=== PATIENT | female | born 1995 | race Caucasian/White ===

== ENCOUNTER → 2018-09-29 10:35 | Observation (INO) ==
[2018-09-29 05:08] LABS: Bilirubin,Urine Negative (Negative); Blood,Urine Negative (Negative); Color,Urine Yellow (Yellow); Glucose,Urine (UA) Normal (Normal); Ketones,Urine Negative (Negative); Leukocyte Esterase,Urine Trace (Negative); Nitrite,Urine Negative (Negative); Protein,Urine Negative (Neg-Trace); Specific Gravity,Urine < 1.005 (1.010-1.025); Urobilinogen,Urine Normal (Normal)
[2018-09-29 05:09] LABS: Clarity,Urine Clear (Clear)
[2018-09-29 05:16] LABS: Squamous Epithelial Cell,Urine Many per lpf (None-Few)
[2018-09-29 05:17] LABS: Bacteria,Urine Moderate per hpf (None-Few); Hyaline Casts,Urine None Seen per lpf (None-Few); RBC,Urine 0-3 per hpf (0-3); WBC,Urine 0-3 per hpf (0-3)
[2018-09-29 05:29] LABS: Amphetamine Screen,Urine Negative ng/mL (Cutoff=1000); Barbiturate Screen,Urine Negative ng/mL (Cutoff=200); Benzodiazepines Screen,Urine Negative ng/mL (Cutoff=200); Cannabinoid Screen,Urine Negative ng/mL (Cutoff = 50); Cocaine Screen,Urine Negative ng/mL (Cutoff= 300); Opiate Screen,Urine Negative ng/mL (Cutoff=300); Phencyclidine Screen,Urine Negative ng/mL (Cutoff=25)
--- NOTE | 2018-09-29 09:40 | Discharge Summary ---
Date of Encounter: 09/29/18 Time of Encounter: 09:40 - Discharge Diagnosis (1) 36 weeks gestation of Priority: Primary Status: Acute Comments: admitted for observation for labor evaluation (2) False labor Priority: Secondary Status: Acute Comments: No cervical change after 3 hours (3) NST (non-stress test) reactive on surveillance Priority: Secondary Status: Acute Comments: 135 bpm moderate variability +15x15 accels no decels noted. Cat. 1 tracing - Discharge Medications Home Medications: Potassium Effervescent [Klyte] 50 meq PO BID 3 Days #6 tablet.eff 08/20/18 [Rx] Pnv95/Ferrous Fumarate/FA [ Vitamin Tablet] 1 each PO 09/29/18 [History] Allergies/Adverse Reactions: Allergy/AdvReac Type Severity Reaction Status Date / Time No Known Allergies Allergy Verified 03/25/16 12:21 Data Procedures and tests throughout hospitalization: Laboratory Tests 09/29/18 09/29/18 04:43 04:43 Urine Color Yellow Urine Clarity Clear Urine pH 7.0 Ur Specific [place] < 1.005 L Urine Protein Negative Urine Glucose (UA) Normal Urine Ketones Negative Urine Blood Negative Urine Nitrite Negative Urine Bilirubin Negative Urine Urobilinogen Normal Ur Leukocyte Esterase Trace H Urine Microscopic RBC 0-3 Urine Microscopic WBC 0-3 Ur Squamous Epith Cells Many H Urine Bacteria Moderate H Hyaline Casts None Seen Ur Culture Indicated? NO. A Urine Opiates Screen Negative Ur Barbiturates Screen Negative Ur Phencyclidine Scrn Negative Ur Amphetamines Screen Negative U Benzodiazepines Scrn Negative Urine Cocaine Screen Negative U Marijuana (THC) Screen Negative Ur Drug Screen Interp See Below Labs on day of discharge: Labs from last 24 hours 09/29/18 09/29/18 04:43 04:43 Urine Color Yellow Urine Clarity Clear Urine pH 7.0 Ur Specific [place] < 1.005 L Urine Protein Negative Urine Glucose (UA) Normal Urine Ketones Negative Urine Blood Negative Urine Nitrite Negative Urine Bilirubin Negative Urine Urobilinogen Normal Ur Leukocyte Esterase Trace H Urine Microscopic RBC 0-3 Urine Microscopic WBC 0-3 Ur Squamous Epith Cells Many H Urine Bacteria Moderate H Hyaline Casts None Seen Ur Culture Indicated? NO. A Urine Opiates Screen Negative Ur Barbiturates Screen Negative Ur Phencyclidine Scrn Negative Ur Amphetamines Screen Negative U Benzodiazepines Scrn Negative Urine Cocaine Screen Negative U Marijuana (THC) Screen Negative Ur Drug Screen Interp See Below Date of admission: 09/29/18 04:28 Primary care physician: PCP NONE Discharging clinician: Bianca Camarillo Anticipated date of discharge: 09/29/18 - Patient Status Disposition: Home, Self-Care Condition: Good Functional capacity at discharge: independent ambulation - Discharge Instructions Follow Up With: NONE,PCP [Primary Care Provider] - Laya Sanchez DO [Partnered Physician] - - Diet and Activity Activity: increase activity as tolerated Diet: regular diet Hospital Course PHARMACEUTICAL PHYSICIAN Hospital course: Patient is a 23 y/o at 36w2d presented to labor and delivery with c/o contractions that have gotten stronger and closer together. Patient denies LOF or VB. Patient reports good movement. FHR 135 bpm moderate variability +15x15 accels no decels noted. Irregular contraction. Patient declines another SVE prior to discharge. Time Attestation: Total time spent providing and/or coordinating discharge services: Time Spent: Less than 30 minutes Exam - Constitutional General appearance IM: A&O X 3, pleasant, answers questions appropriately - Respiratory Respiratory exam: Present: CTAB - Cardiovascular Cardiovascular exam IM: Present: RRR, +S1, +S2 - GI/Abdominal GI/Abdominal exam IM: normal bowel sounds - Extremities Exam Extremities exam IM: Present: full ROM, normal capillary refill, normal inspection - Neurological Exam Neurological exam: alert, oriented X3, reflexes normal - Other Additional findings: SVE per RN /+1 no change. Patient declines another SVE prior to discharge. Patient is scheduled in office tomorrow. - VTE Reasons for not Prescribing Prophylaxis: Treatment not Indicated - Low risk for VTE
== END | disposition home or self-care (01) ==
LOC: 1NENULAB
PROVIDERS: ADMIT Advanced Practice Midwife; ATTEND Advanced Practice Midwife

== ENCOUNTER 2020-05-30 11:27 | Observation (INO) | END 2020-05-30 13:08 | disposition home or self-care (01) | LOC: 1NENULAB | PROVIDERS: ADMIT Obstetrics & Gynecology; ATTEND Obstetrics & Gynecology ==

== ENCOUNTER 2020-08-14 15:13 | Inpatient (IN) ==
[2020-08-14 15:06] LABS: Bacteria,Urine Few per hpf (None-Few); Bilirubin,Urine Negative (Negative); Blood,Urine Negative (Negative); Clarity,Urine Turbid (Clear); Color,Urine Light-Yellow (Yellow); Glucose,Urine (UA) Normal (Normal); Ketones,Urine Negative (Negative); Leukocyte Esterase,Urine Large (Negative); Mucus,Urine Few per lpf (None-Few); Nitrite,Urine Negative (Negative); Protein,Urine Negative (Neg-Trace); RBC,Urine 0-3 per hpf (0-3); Squamous Epithelial Cell,Urine Moderate per hpf (None-Few); Urobilinogen,Urine Normal (Normal); WBC,Urine TNTC per hpf (0-3)
[2020-08-14] MEDS ORDERED: Naloxone 0.4 MG/ML INJ IVP PRN (15:22)
[2020-08-14] MEDS ORDERED: Metoclopramide 10 MG/2 ML VIAL IVP PRN (15:22)
[2020-08-14] MEDS ORDERED: Famotidine 20 MG/2 ML VIAL IVP PRN (15:22)
[2020-08-14] MEDS ORDERED: Penicillin G Potassium 5,000,000 UNIT in 0.9 % Sodium Chloride Mini Bag 100 ML IVPB ONE (15:22)
[2020-08-14] MEDS ORDERED: Ondansetron 4 MG/2 ML VIAL IVP PRN (15:22)
[2020-08-14] MEDS ORDERED: *HR* FentaNYL (PF) 100 MCG/2 ML VIAL IVP PRN (15:22)
[2020-08-14] MEDS ORDERED: Betamethasone Acet/SodPhos 30 MG/5 ML VIAL IM SCH (15:30)
[2020-08-14] MEDS ORDERED: D5% in Lactated Ringers 1,000 ML IVC SCH (15:30)
[2020-08-14] MEDS ORDERED: Ringers Solution, Lactated 1,000 ML ONE ×2 (15:40→17:00)
[2020-08-14 15:53] LABS: Basophils % 0.3 %; Eosinophils # 0.1 K/mcL (0.0-0.6); Eosinophils % 1.1 %; Hematocrit 35.8 % (35.3-44.9); Hemoglobin 11.2 g/dL (11.5-15.4); Immature Granulocytes % 1.5 % (0-4); Lymphocytes # 1.9 K/mcL (0.6-4.6); Lymphocytes % 14.5 %; Mean Corpuscular HGB Conc 31.3 g/dL (31.6-35.5); Mean Corpuscular Hemoglobin 28.5 pg (28.0-33.3); Mean Corpuscular Volume 91.1 fL (83.0-100.0); Monocytes # 1.1 K/mcL (0.0-1.3); Monocytes % 8.3 %; Neutrophils # 9.6 K/mcL (1.6-8.9); Platelet Count 240 K/mcL (140-400); Red Blood Count 3.93 M/mcL (3.82-4.97); Red Cell Distribution Width 13.8 % (11.5-14.5); Segmented Neutrophils % 74.3 %; White Blood Count 12.9 K/mcL (4.3-11.1)
[2020-08-14 15:59] LABS: Amphetamine Screen,Urine Negative ng/mL (Cutoff=1000); Barbiturate Screen,Urine Negative ng/mL (Cutoff=200); Benzodiazepines Screen,Urine Negative ng/mL (Cutoff=200); Cannabinoid Screen,Urine Negative ng/mL (Cutoff = 50); Cocaine Screen,Urine Negative ng/mL (Cutoff= 300); Opiate Screen,Urine Negative ng/mL (Cutoff=300); Phencyclidine Screen,Urine Negative ng/mL (Cutoff=25)
[2020-08-14] MEDS ORDERED: Bupivacaine-MPF 0.25% 10 ML VIAL EP ONE (17:08)
[2020-08-14] MEDS ORDERED: EPHEDrine 50 MG/ML VIAL IVP PRN (17:08)
[2020-08-14] MEDS ORDERED: *HR* FentaNYL (PF) 100 MCG/2 ML VIAL EP ONE (17:08)
[2020-08-14] MEDS ORDERED: *HR* FentaNYL (PF) 100 MCG/2 ML VIAL ONE (17:12)
[2020-08-14] MEDS ORDERED: Bupivacaine-MPF 0.25% 10 ML VIAL ONE (17:12)
[2020-08-14] MEDS ORDERED: Epidural Premix (fent/bupiv) 110 ML EP SCH (17:15)
[2020-08-14] MEDS: Penicillin G Potassium 2,500,000 UNIT in 0.9 % Sodium Chloride 100 ML IVPB SCH (19:43)
[2020-08-15] MEDS: Penicillin G Potassium 2,500,000 UNIT in 0.9 % Sodium Chloride 100 ML IVPB SCH (03:40)
[2020-08-15] MEDS ORDERED: Oxytocin 20 units/ LR 1000 mL 20 UNIT/1,000 ML BAG IVC SCH (05:03)
[2020-08-15] MEDS ORDERED: Oxytocin 20 units/ LR 1000 mL 20 UNIT/1,000 ML BAG IVC ONE (05:03)
[2020-08-15] MEDS ORDERED: Acetaminophen 325 MG TABLET PO PRN (05:03)
[2020-08-15] MEDS ORDERED: Measles/Mumps/Rubella Vacc 0.5 ML VIAL SQ PRN (05:03)
[2020-08-15] MEDS ORDERED: Lanolin 7 G OINT...G. TP PRN (05:03)
[2020-08-15] MEDS: Ibuprofen 600 MG TABLET PO PRN ×3 (07:37→22:19)
[2020-08-15] MEDS: Prenatal Vit/FA 1 EACH TABLET PO SCH (07:37)
[2020-08-16 05:37] LABS: Basophils % 0.2 %; Eosinophils % 0.1 %; Hematocrit 25.7 % (35.3-44.9); Immature Granulocytes % 1.9 % (0-4); Lymphocytes # 2.8 K/mcL (0.6-4.6); Lymphocytes % 13.3 %; Mean Corpuscular HGB Conc 32.3 g/dL (31.6-35.5); Mean Corpuscular Hemoglobin 29.3 pg (28.0-33.3); Mean Corpuscular Volume 90.8 fL (83.0-100.0); Mean Platelet Volume 11.1 fL (9.4-12.4); Monocytes # 1.5 K/mcL (0.0-1.3); Monocytes % 7.2 %; Platelet Count 258 K/mcL (140-400); Red Blood Count 2.83 M/mcL (3.82-4.97); Red Cell Distribution Width 13.9 % (11.5-14.5); Segmented Neutrophils % 77.3 %
[2020-08-16 05:39] LABS: Hemoglobin 8.3 g/dL (11.5-15.4); White Blood Count 20.7 K/mcL (4.3-11.1)
[2020-08-16 07:53] VITALS: BP 107/61
[2020-08-16] MEDS: Ibuprofen 600 MG TABLET PO PRN (08:56)
[2020-08-16] MEDS: Prenatal Vit/FA 1 EACH TABLET PO SCH (08:56)
== END 2020-08-16 12:26 | disposition home or self-care (01) | DRG 560 ==
LOC: 1NENULAB → 1NENUOBS 08-15 04:49
PROVIDERS: ADMIT Obstetrics & Gynecology; ATTEND Obstetrics & Gynecology